=== PATIENT | female | born 1955 | race Caucasian/White ===

== ENCOUNTER → 2016-05-30 | Outpatient (CLI) | payer OTHER ==
--- NOTE | 2016-06-05 12:23 | EM ---
DATE OF SERVICE: 24 HOUR DCG REPORT AGE: 61Y SEX: F INDICATIONS: The patient in her diary indicated mostly activities. No major symptoms were reported. Predominant rhythm appears to be sinus with a heart rate ranging from 62 to ( ) beats per minute with the average heart rate of 93 beats per minute. There was a lot of artifact noted. ( ) rhythm and sinus rhythm and sinus tachycardia was noted. At 5:31 pm on day one, there was one episode of what seems like an atrial flutter at a rate of about 156 beats per minute. She then converted back to sinus rhythm. She did describe a feeling of skipped heart beat at that time. PVCs were noted and there was no bradyarrhythmia. FINAL IMPRESSION: 1. The predominant rhythm is sinus with sinus tachycardia. 2. There are at least 2 episodes of paroxysmal atrial flutter at a rate of 150 noted. 3. Rare PVCs were noted. 4. There was there was one episode when she felt some skipped heartbeat. And there was evidence of paroxysmal atrial flutter.
== END | disposition home or self-care (01) ==
LOC: RADECHMAIN 12:17
PROVIDERS: ATTEND Nurse Practitioner Family
DX: I48.92 Unspecified atrial flutter (principal); R00.0 Tachycardia, unspecified
CPT/HCPCS: 93225; 93226

== ENCOUNTER → 2019-02-13 | Outpatient (CLI) | payer OTHER ==
--- NOTE | 2019-02-17 10:36 | MM ---
Reason for exam: screening (asymptomatic). Last mammogram was performed 3 years and 7 months ago. History: Patient is postmenopausal and history of other cancer. Benign ultrasound-guided core biopsy of the left breast, December 24, 2000. Physical Findings: A clinical breast exam by your physician is recommended on an annual basis and results should be correlated with mammographic findings. MG Screening Mammo w CAD Bilateral CC and MLO view(s) were taken. Prior study comparison: July 01, 2015, bilateral MG screening mammo w CAD. March 24, 2014, bilateral MG screening mammo w CAD. There are scattered fibroglandular densities. There is chronic nodularity bilaterally. No significant changes when compared with prior studies. ASSESSMENT: Benign, BI-RAD 2 RECOMMENDATION: Routine screening mammogram of both breasts in 1 year.
== END | disposition home or self-care (01) ==
LOC: RADMAMWWP 13:38
PROVIDERS: ATTEND Family Medicine
DX: Z12.31 Encounter for screening mammogram for malignant neoplasm of breast (principal)
CPT/HCPCS: 77067

== ENCOUNTER → 2020-04-08 | Outpatient (CLI) | payer BC ==
--- NOTE | 2020-04-09 13:44 | MM ---
Reason for exam: screening (asymptomatic). Last mammogram was performed 1 year and 2 months ago. History: Patient is postmenopausal and history of other cancer. Benign ultrasound-guided core biopsy of the left breast, December 24, 2000. Physical Findings: A clinical breast exam by your physician is recommended on an annual basis and results should be correlated with mammographic findings. MG Screening Mammo w CAD Bilateral CC and MLO view(s) were taken. Prior study comparison: February 13, 2019, bilateral MG screening mammo w CAD. July 01, 2015, bilateral MG screening mammo w CAD. There are scattered fibroglandular densities. No significant changes when compared with prior studies. ASSESSMENT: Benign, BI-RAD 2 RECOMMENDATION: Routine screening mammogram of both breasts in 1 year.
== END | disposition home or self-care (01) ==
LOC: RADMAMWWP 10:55
PROVIDERS: ATTEND Family Medicine
DX: Z12.31 Encounter for screening mammogram for malignant neoplasm of breast (principal)
CPT/HCPCS: 77067

== ENCOUNTER → 2023-04-10 | Outpatient (CLI) | payer MEDICARE ==
--- NOTE | 2023-04-11 07:54 | BD ---
EXAMINATION TYPE: Axial Bone Density DATE OF EXAM: 04/10/2023 CLINICAL HISTORY: 67 years old Female. ICD-10 CODE: Z78.0 ASYMPTOMATIC MENOPAUSAL STA Height: 65 Weight: 238.6 FRAX RISK QUESTIONS: Alcohol (3 or more units per day): no Family History (Parent hip fracture): no Glucocorticoids (More than 3mos): no History of Fracture in Adulthood: no Secondary Osteoporosis: 1. Type 1 Diabetes: no 2. Hyperthyroidism: no 3. Menopause before 45: no 4. Malnutrition: no 5. Chronic liver disease: no Rheumatoid Arthritis: no Current Tobacco Use: no RISK FACTORS HISTORY OF: Hip Fracture (Right/Left): no Spine Fracture: no History of Wrist Fracture: no Surgery to Spine/Hip(right/left)/Wrist (right/left): no Family History of Osteoporosis: no Active: no Diet low in dairy products/other sources of calcium: yes Postmenopausal woman: yes Take estrogen and/or progesterone medications: no Lost more than 2 inches in height since high school: yes Frequent falls: no Poor Health: no Hyperparathyroidism: no Adrenal Insufficiency: no MEDICATIONS: Prednisone or other steroids: no Thyroid Medications:no Osteoporosis Medications: no Additional Medications: BP Meds, Multi Vit., Additional History: EXAM MEASUREMENTS: Bone mineral densitometry was performed using the [employer] System. Bone mineral density as measured about the Lumbar spine is: ----- L1-L4(G/cm2): 1.259 T Score Values are as follows: ----- L1: 1.0 ----- L2: -0.1 ----- L3: 0.0 ----- L4: 17 ----- L1-L4: 0.7 Z Score Values are as follows: ----- L1: 1.4 ----- L2: 0.3 ----- L3: 0.4 ----- L4: 2.2 ----- L1-L4: 1.1 Bone mineral density has: increased 1.2 % since study of: 2014 Bone mineral density about the R hip (g/cm2): 0.919 Bone mineral density about the L hip (g/cm2): 0.943 T Score values are as follows: -----R Neck: -1.0 -----L Neck: -1.8 -----R Total: -0.7 -----L Total: -0.5 Z Score values are as follows: -----R Neck: -0.2 -----L Neck: -1.0 -----R Total: -0.2 -----L Total: -0.1 Bone mineral density has: decreased -4.8 % since study of: 2013 FRAX%s: The graph provided illustrates a 9.1% chance for a major osteoporotic fx and a 1.2% chance fo r the hips probability for fx in 10 years time. IMPRESSION: Osteopenia (T Score between -2.5 and -1). There is slightly increased risk of fracture and the patient may be considered for treatment. Re-Screen 2-5 years. NOTE: T-SCORE=SD OF THE YOUNG ADULT MEAN.
--- NOTE | 2023-04-11 20:15 | MM ---
Reason for Exam: Screening (asymptomatic). Last mammogram was performed 3 year(s) and 0 month(s) ago. Patient History: Menarche at age 13. First Full-Term at age 22. Hysterectomy at age 44. Postmenopausal. Other cancer. 12/24/2000, Benign Ultrasound-Guided Core Biopsy on the left side. Risk Values: Monet 5 year model risk: 1.8%. NCI Lifetime model risk: 6.4%. Prior Study Comparison: 07/01/2015 Bilateral Screening Mammogram, [facility]. 02/13/2019 Bilateral Screening Mammogram, [facility]. 04/08/2020 Bilateral Screening Mammogram, [facility]. Tissue Density: There are scattered fibroglandular densities. Findings: Analyzed By CAD. Chronic bilateral fluctuating nodularity in an overall benign pattern. There is no suspicious group of microcalcifications or new suspicious mass in either breast. Overall Assessment: Benign, BI-RAD 2 Management: Screening Mammogram of both breasts in 1 year. . Patient should continue monthly self-breast exams. A clinical breast exam by your physician is recommended on an annual basis. This exam should not preclude additional follow-up of suspicious palpable abnormalities. Note on Monet scores and lifetime risk: 1. A Monet score greater than 3% is considered moderate risk. If this is the case, consider specialist referral to assess eligibility for a risk reducing agent. 2. If overall lifetime risk for the development of breast cancer is 20% or higher, the patient may qualify for future screening with alternating mammogram and breast MRI. Electronically signed and approved by: Terry Ferrera M.D. Radiologist
== END | disposition home or self-care (01) ==
LOC: RADBDWWP 15:07
PROVIDERS: ATTEND Family Medicine
DX: Z12.31 Encounter for screening mammogram for malignant neoplasm of breast (principal); M85.852 Other specified disorders of bone density and structure, left thigh; Z78.0 Asymptomatic menopausal state
CPT/HCPCS: 77067; 77080

== ENCOUNTER → 2024-03-14 | Outpatient (CLI) | payer MEDICARE ==
--- NOTE | 2024-03-15 14:34 | US ---
EXAMINATION TYPE: US thyroid st tissue head/neck DATE OF EXAM: 03/14/2024 COMPARISON: NONE CLINICAL INDICATION: Female, 68 years old with history of E04.1 THYROID NODULE; No abnormal thyroid l abs TECHNIQUE: Grayscale and color Doppler imaging of the thyroid gland. FINDINGS: GLAND SIZE: Right Lobe: 5.2 x 2.5 x 2.5 cm Overall Parenchyma: homogeneous Left Lobe: 4.4 x 1.7 x 1.8 cm Overall Parenchyma: homogeneous Isthmus Thickness: 0.6 cm NODULES RIGHT: # of nodules measured on right: 2 1. 3.0 x 2.6 x 2.3 cm, lower mid, Prior size: No prior Warning! For a spongiform nodule, no other features contribute points! TIRADS Score: 0 TIRADS Category 1: Benign Composition: Spongiform (0 points). Recommendation: No FNA 2. 1.0 X 0.9 x 0.8 cm, mid Prior size: No prior TIRADS Score: 3 TIRADS Category 3: Composition: Solid or almost completely solid (2 points). Echogenicity: Hyperechoic or isoechoic (1 point). Shape: Wider than tall (0 points). Margin: Smooth (0 points). Echogenic foci: None or large comet-tail artifacts (0 points) Recommendation: If >2.5cm: FNA; If >1.5cm: Follow up at 1,3,5 years LEFT: # of nodules measured on left: 1 1. 1.0 X 0.9 x 0.6 cm, mid mid, Prior size: No prior TIRADS Score: 4 TIRADS Category 4: Composition: Solid or almost completely solid (2 points). Echogenicity: Hypoechoic (2 points). Shape: Wider than tall (0 points). Margin: Smooth (0 points). Echogenic foci: None or large comet-tail artifacts (0 points) Recommendation: If >1.5cm: FNA; If >1cm: Follow up at 1,2, 3,5 years ISTHMUS: # of nodules measured in the isthmus: 0 Bilateral neck scanned, no evidence of lymphadenopathy. IMPRESSION: Thyroid nodules that meet criteria for follow-up. [facility], , 03/15/2024 2:32 PM
== END | disposition home or self-care (01) ==
LOC: RADUSWWP 15:20
PROVIDERS: ATTEND Family Medicine
DX: E04.2 Nontoxic multinodular goiter (principal)
CPT/HCPCS: 76536